=== PATIENT | male | born 1985 | race Two or more races ===

== ENCOUNTER 2017-10-25 11:02 | Emergency (ER) | payer OTHER ==
[~2017-10-25] VITALS: Ht 177.8 cm; Wt 71.2 kg
[2017-10-25 12:40] VITALS: BP 106/72
--- NOTE | 2017-10-28 22:40 | Emergency Room Report ---
History of Present Illness General Chief Complaint: Laceration Source: Patient Present Illness HPI Patient presents with cut to the right index finger this happened at work just prior to arrival Patient was cutting a plastic with a knife And the knife slipped and he sustained injury Denies any loss of consciousness The bleeding was fairly well controlled with pressure Patient had last tetanus shot about 3 years ago Pain is 2/10 localized to the lacerated area Allergies: Coded Allergies: No Known Allergies (Unverified , 10/25/17) Patient History Past Medical History: see triage record Pertinent Family History: none Reviewed Nursing Documentation: PMH: Agreed, PSxH: Agreed Nursing Documentation-PMH Past Medical History: No Stated History Review of Systems All Other Systems: negative except mentioned in HPI Physical Exam Vital Signs Date Time Temp Pulse Resp B/P (MAP) Pulse Ox O2 Delivery O2 Flow Rate FiO2 10/25/17 11:22 97.9 60 17 106/72 98 Sp02 EP Interpretation: reviewed, normal General Appearance: well appearing, no apparent distress Head: normocephalic, atraumatic Eyes: bilateral eye PERRL, bilateral eye EOMI ENT: hearing grossly normal, normal pharynx Respiratory: chest non-tender, lungs clear Cardiovascular #1: regular rate, rhythm Musculoskeletal: other - Appropriate flexion-extension at the index finger Neurologic: alert, oriented x3, responsive Skin: other - Approximately half centimeter semicircular laceration involving the lateral aspect of the index finger, the laceration appears to be fairly superficial Lymphatic: no adenopathy Procedures Laceration/Wound Repair Progress The lacerated area has total length of 0.5 cm Semicircular in nature After copious amounts of irrigation The area was able to be closed using Steri-Strips across the laceration Along with Dermabond in the medial aspect patient tolerated procedure well Medical Decision Making Diagnostic Impression: Primary Impression: Laceration ER Course Patient does not appear to show any signs of tendon involvement Has good flexion extension of the digit Refer to the laceration note for specifics Patient will have close outpatient followup Last Vital Signs Date Time Temp Pulse Resp B/P (MAP) Pulse Ox O2 Delivery O2 Flow Rate FiO2 10/25/17 12:40 97.9 17 106/72 98 10/25/17 11:22 60 Status: improved Disposition: HOME, SELF-CARE Condition: Improved Scripts No Active Prescriptions or Reported Meds Referrals: [facility] (PCP) Patient Instructions: Laceration Care, Adult Additional Instructions: Patient is provided with the discharge instructions notified to follow up with primary doctor in the next 2-3 days otherwise return to the er with any worsening symptoms. Please note that this report is being documented using [employer] technology. This can lead to erroneous entry secondary to incorrect interpretation by the dictating instrument. OSIRIS SIMMONS D.O. Oct 28, 2017 22:40
== END 2017-10-25 12:40 | disposition home or self-care (01) ==
LOC: EMR 11:45
DX: S61.210A Laceration without foreign body of right index finger without damage to nail, initial encounter (principal); W26.0XXA Contact with knife, initial encounter; Y92.9 Unspecified place or not applicable
CPT/HCPCS: 99283